=== PATIENT | male | born 1975 | race Caucasian/White ===

== ENCOUNTER 2022-12-07 19:41 | Emergency (ER) | payer OTHER ==
[2022-12-07 19:48] VITALS: BP 138/89; PULSE 75; RESP 17; TEMP 98.2; BMI 29.2
[2022-12-07] MEDS ORDERED: IBUPROFEN 600 MG TABLET (FP) PO ONE ×2 (22:21→22:44)
[2022-12-07] MEDS ORDERED: SODIUM CHLORIDE 0.9% 500 ML INFUS.BAG IV ONE (22:24)
[2022-12-07 23:02] LABS: BASO % 0.4 % (0-2.0); EOS % 1.1 % (0-4.5); HEMATOCRIT 40.3 % (35.4-49); HEMOGLOBIN 13.4 GM/dL (11.7-16.9); MCH 27.7 pg (25.7-33.7); MCHC 33.3 g/dl (32.0-35.9); MEAN PLT VOLUME 7.5 fl (7.5-11.1); MONO % 6.8 % (3.8-10.2); NEUT % 64.7 % (42.8-82.8); PLATELET COUNT 310 10^3/uL (134-434); RBC 4.86 M/mm3 (4.00-5.60); RDW 13.1 % (11.9-15.9); WHITE BLOOD COUNT 8.7 K/mm3 (4.0-10.0)
[2022-12-07 23:24] LABS: ALBUMIN 3.7 g/dl (3.4-5.0); CALCIUM 9.3 mg/dL (8.5-10.1)
[2022-12-07 23:27] LABS: CREATININE 0.9 mg/dL (0.55-1.3)
[2022-12-07 23:29] LABS: BILIRUBIN,TOTAL 1.2 mg/dL (0.2-1); TOT PROT 7.3 g/dl (6.4-8.2)
== END 2022-12-08 00:34 | disposition home or self-care (01) ==
LOC: JER 19:41
DX: R51.9 Headache, unspecified (principal); R07.9 Chest pain, unspecified; M79.10 Myalgia, unspecified site; R53.83 Other fatigue; R63.0 Anorexia; Z20.822 Contact with and (suspected) exposure to COVID-19
CPT/HCPCS: 0241U-QW; 36415; 71046-TC-FY; 80053; 84484; 85025; 93005; 93010; 99285-25